=== PATIENT | female | born 1970 | race Two or more races ===

== ENCOUNTER 2024-11-24 18:33 | Emergency (ER) | payer MEDICAID ==
[~2024-11-24] VITALS: Ht 149.9 cm; Wt 76.2 kg
--- NOTE | 2024-11-24 19:31 | Physician Documentation ---
History of Present Illness Chief Complaint: Abdominal Pain Stated Complaint: ABDOMINAL PAIN Source: patient Mode of Arrival: POV Exam Limitations: no limitations HPI Patient with no significant medical history in with mild generalized cramping over the past week. She has also had a lot of diarrhea. No nausea or vomiting. No fever or rash. No known sick contacts. No recent travel, eating out or antibiotic use. She states her last diarrhea was early this morning so she feels like it is slowing down today. No upper respiratory symptoms. Medication Reconciliation Allergies: Coded Allergies: No Known Allergies (Unverified , 11/24/24) Past Medical History Past Medical History: No Pertinent History Review of Systems All Other Systems at this time: Reviewed and Negative Physical Exam Vital Signs: Temperature: 97.6, Source: Temporal, Heart Rate: 95, Respiratory Rate: 15, BP: 133/99, Pulse Oximetry: 99, Weight: 76.200 Physical Exam General: Alert and oriented x4, well-appearing, well-nourished, no acute distress HEENT: Normocephalic, atraumatic, no visible or palpable masses or depression, extraocular movements intact, PERRLA, no scleral icterus, neck is supple and nontender, mucous membranes moist Heart: Regular rate and rhythm, no murmurs, rubs or gallops Lungs: Clear to auscultation bilaterally, normal work of breathing Abdomen: Soft, nontender, no palpable masses, normal bowel sounds Back: Spine is without deformity or tenderness, no CVA tenderness Extremities: Full range of motion, no acute deformity, peripheral pulses intact, no cyanosis or edema Musculoskeletal: Normal gait, normal tone Neurologic: Cranial nerves 2-12 are intact, reflexes normal Psychiatric: Alert and oriented x4, judgment and insight normal, normal mood and affect Skin: Good turgor, no rashes Progress Results/Orders Results/Orders Vital Signs 11/24/24 18:49 Temp 97.6 Pulse 95 Resp 15 B/P (MAP) 133/99 Pulse Ox 99 Medical Decision Making Additional Comments Differential includes but isn't limited to: Gastroenteritis, colitis, dehydration, electrolyte derangement, viral infection Departure Disposition: HOME / SELF CARE / HOMELESS Impression: Primary Impression: Abdominal pain Qualified Codes: R10.84 - Generalized abdominal pain Additional Impression: Diarrhea Qualified Codes: R19.7 - Diarrhea, unspecified Additional Impression Text Patient in with diarrhea and mild cramping for the past week though it has improved today. Labs are unremarkable and CT is also negative. She does have fatty liver and mild hepatosplenomegaly. Discussed this with the patient. Discharging home in good condition. Did get fluids in the ED and feels better. She is to follow up with her doctor if not improving or return here if new or worsening symptoms prior to that follow-up. Condition: Stable Discharge Instructions: Diarrhea, Adult, [id number] Additional Instructions: Follow-up with your doctor if not improving over the next week or return if new or worsening symptoms. Referrals: NO PRIMARY CARE PROVIDER (PCP) Education Educated: Patient Educated regarding: diagnosis, treatment, prognosis, need for follow up Additional Comment Medical Screen Exam History: This is a 53-year-old female who presents with six days of abdominal pain with onset of vomiting and diarrhea today, patient reports no fever reports chills. Exam: VITALS: Reviewed and as above. GENERAL: Alert, nontoxic appearing, no apparent distress. RESPIRATORY: No increased work of breathing, no respiratory distress, speaking in full clear sentences MSE performed in triage and patient returned to ED lobby by nursing staff The note accurately reflects work and decisions made by me.SIMA Aceves 11/24/24 19:31 Signature Scribe Signature: No scribe Attestation: No [email or web address] Weeks Nov 24, 2024 19:31 TORRES NUNEZ MD Nov 25, 2024 01:43
[2024-11-24 21:26] LABS: BILIRUBIN,URINE NEGATIVE (Neg); CLARITY,URINE CLEAR (Clear); COLOR,URINE YELLOW (Yellow); GLUCOSE, URINE NEGATIVE (Neg); KETONES,URINE NEGATIVE (Neg); LEUKOCYTE ESTERASE ,URINE TRACE (Neg); NITRITES, URINE NEGATIVE (Neg); OCCULT BLOOD,URINE NEGATIVE (Neg); PH,URINE 7.5 (4.8-8.0); PROTEIN,URINE NEGATIVE (Neg); URINE HCG NEGATIVE (NEG); UROBILINOGEN,URINE 0.2 E.U/dL (0.2-1.0)
[2024-11-24 21:27] LABS: UA COLLECTION TYPE CLN CATCH MIDSTREAM
[2024-11-24 21:34] LABS: MUCUS STRANDS MODERATE /LPF (Neg); SQUAMOUS EPITHELIAL CELL,UR MODERATE /LPF (FEW)
[2024-11-24 21:35] LABS: BACTERIA,URINE FEW /HPF (Neg); RBC,URINE 0-2 /HPF (0-2)
[2024-11-24 21:38] LABS: BASOPHILS # (AUTO) 0.1 X10'3 (0-0.2); BASOPHILS % (AUTO) 0.5 % (0-1); EOSINOPHILS # (AUTO) 0.1 X10'3 (0-0.9); HEMOGLOBIN 13.5 g/dl (12.0-16.0); LYMPHOCYTES # (AUTO) 3.6 X10'3 (1.1-4.8); LYMPHOCYTES % (AUTO) 26.9 % (21-51); MEAN CORPUSCULAR HEMOGLOBIN 31.3 PG (27.0-31.0); MEAN CORPUSCULAR HGB CONC 34.7 g/dL (33.0-36.5); MEAN CORPUSCULAR VOLUME 90.1 FL (78-98); MEAN PLATELET VOLUME 9.1 FL (7.4-10.4); MONOCYTES # (AUTO) 0.9 X10'3 (0-0.9); MONOCYTES % (AUTO) 6.9 % (2-12); NEUTROPHILS # (AUTO) 8.7 X10'3 (1.8-7.7); NEUTROPHILS % (AUTO) 64.7 % (42-75); PLATELET COUNT 201 X10'3 (140-440); RED BLOOD COUNT 4.33 X10'6 (4.20-5.60); RED CELL DISTRIBUTION WIDTH 13.2 % (11.5-14.5); WHITE BLOOD COUNT 13.5 X10'3 (4.5-11.0)
[2024-11-24 21:59] LABS: ALANINE AMINOTRANSFERASE 53 U/L (12-78); ALBUMIN 3.3 G/DL (3.4-5.0); ALKALINE PHOSPHATASE 154 IU/L (46-116); ANION GAP 8 (8-16); ASPARTATE AMINO TRANSFERASE 18 U/L (10-37); BILIRUBIN,TOTAL 0.4 MG/DL (0.1-1.0); BLOOD UREA NITROGEN 15 MG/DL (7-18); BUN/CREATININE RATIO 27.8 (10.0-20.0); CALCIUM 8.9 MG/DL (8.5-10.1); CHLORIDE 106 MMOL/L (99-107); CREATININE 0.54 MG/DL (0.40-0.90); GLUCOSE 212 MG/DL (70-104); LIPASE 82 U/L (16-77); POTASSIUM 3.5 MMOL/L (3.5-5.1); SODIUM 143 MMOL/L (135-145); TOTAL CARBON DIOXIDE 28.8 MMOL/L (24-32); TOTAL PROTEIN 6.5 G/DL (6.4-8.2); eCRCL 83 ML/MIN; eGFR > 90 ML/MIN
[2024-11-24] MEDS ORDERED: iohexol 300mg/ml 100ml inj. ONE (22:35)
[2024-11-24] MEDS: normal saline 1000ml 1,000 ML IV ONE (22:45)
--- NOTE | 2024-11-25 01:05 | RADIOLOGY REPORT ---
CLINICAL HISTORY: generalized abdo pain and diarrhea x 1 week TECHNIQUE: CT of the abdomen and pelvis was performed with intravenous contrast. This exam was perfor med according to our departmental dose optimization program. Up-to-date CT equipment and radiation do se reduction techniques are utilized as appropriate. CTDIVol: 33.83+ 0.14 mGy DLP: 1785.37 mGy-cm WID: COMPARISON: None FINDINGS: Lower Thorax: Unremarkable. Liver and Biliary system: Mild hepatomegaly measuring 19 cm craniocaudal. Mild hepatic steatosis. No discrete hepatic lesion. Major portal veins are patent. Prior cholecystectomy. No biliary ductal di latation. Spleen: Mild splenomegaly. Adrenal Glands and Kidneys: Unremarkable. Pancreas and Retroperitoneum: Unremarkable. Aorta and Major Vessels: Aortoiliac vessels are patent and normal caliber with mild calcified atheros clerotic plaque. Bowel, Mesentery and Peritoneal space: Normal caliber small and large bowel. Normal appendix. No free air or fluid collection. Pelvis: No pelvic lymphadenopathy. Prior hysterectomy. Urinary bladder is unremarkable. Abdominal wall and Osseous Structures: Small fat containing umbilical hernia. Multilevel lower thorac ic and lumbar spondylosis. No destructive osseous lesion. IMPRESSION: 1. No bowel obstruction, fluid collection, or free air. Normal appendix. 2. Mild hepatosplenomegaly with mild hepatic steatosis.
[2024-11-25 01:55] VITALS: BP 136/80; PULSE 80; RESP 16; TEMP 98.1; O2SAT 99
== END 2024-11-25 02:10 | disposition home or self-care (01) ==
LOC: ER 18:35
DX: R10.84 Generalized abdominal pain (principal); R19.7 Diarrhea, unspecified
CPT/HCPCS: 36415; 74177; 80053; 81001; 81025; 83690; 85025; 87088; 96360; 99285; J7030; Q9967

== ENCOUNTER 2025-02-02 13:48 | Emergency (ER) | payer MEDICAID ==
[~2025-02-02] VITALS: Ht 149.9 cm; Wt 87.6 kg
[2025-02-02 13:59] VITALS: BP 141/78; PULSE 99; RESP 16; TEMP 97.7; O2SAT 98
--- NOTE | 2025-02-02 14:04 | Physician Documentation ---
History of Present Illness ~ Chief Complaint: Flu Symptoms Stated Complaint: ALL OVER BODY PAIN Time Seen by MD: 14:54 HPI Patient is a 54-year-old female that presents to the emergency department for evaluation of flu-like symptoms. Patient reports pain throughout her body nausea x5 days. Patient denies shortness of breath or chest pain. Patient denies any known sick contacts. No other complaints at this time. Medication Reconciliation Allergies: Coded Allergies: No Known Allergies (Unverified , 11/24/24) Past Medical History Past Medical History: No Pertinent History Review of Systems ROS As stated above in the HPI, otherwise all systems are reviewed and negative. Physical Exam Vital Signs: Temperature: 97.7, Source: Temporal, Heart Rate: 99, Respiratory Rate: 16, BP: 141/78, Pulse Oximetry: 98, Weight: 87.600 Physical Exam VITALS: Reviewed and as above. GENERAL: Alert, no apparent distress. HEENT: Normocephalic, atraumatic, PERRL, EOMI, dry mucosa, no erythema RESPIRATORY: Lungs clear, normal breath sounds, no respiratory distress. CHEST: No accessory muscle use, no retractions CV: Regular rate, rhythm, no edema, no murmur, No: JVD GI: Soft, non-tender, bowels sounds present, no rebound, guarding, or rigidity BACK: No CVA tenderness, or swelling MUSCULOSKELETAL No deformities, no edema, patient reports all over body aches an d achy joints. SKIN: Warm and dry, no rash NEURO: Oriented x4, No motor or sensory deficit PSYCH: Normal mood and affect, no agitation Progress Results/Orders Results/Orders Orders - SARAHI SANFORD HEAD ORTHOPEDIC TEAM PHYSICIAN Chest,Single View (02/02/25 16:20) Cult Urine + [address] (02/02/25 16:37) Completed Orders - SARAHI SANFORD HEAD ORTHOPEDIC TEAM PHYSICIAN Cbc/Diff (02/02/25 14:18) CMP (02/02/25 14:18) Chest,Single View (02/02/25 16:20) PBNP (02/02/25 04:37) Ua W/Microscopic, Cult If Ind (02/02/25 15:48) Vital Signs 02/02/25 13:59 Temp 97.7 Pulse 99 Resp 16 B/P (MAP) 141/78 Pulse Ox 98 Laboratory Tests Test 02/02/25 04:37 02/02/25 14:37 02/02/25 15:48 02/02/25 15:53 Sodium Level 141 Potassium Level 3.9 Chloride Level 107 Carbon Dioxide Level 27.6 Anion Gap 6 L Blood Urea Nitrogen 16 Creatinine 0.39 L Estimated GFR/1.73 m2 > 90 BUN/Creatinine Ratio 41.0 H Glucose Level 134 H Calcium Level 9.0 Total Bilirubin 0.8 Aspartate Amino Transf (AST/SGOT) 36 Alanine Aminotransferase (ALT/SGPT) 45 Alkaline Phosphatase 135 H Pro-B-Type Natriuretic Peptide 37 Total Protein 7.0 Albumin 3.4 Globulin 3.6 Albumin/Globulin Ratio 0.9 L Chemistry Comments White Blood Count 7.8 Red Blood Count 4.41 Hemoglobin 13.6 Hematocrit 39.5 Mean Corpuscular Volume 89.6 Mean Corpuscular Hemoglobin 30.8 Mean Corpuscular Hemoglobin Concent 34.4 Red Cell Distribution Width 12.8 Platelet Count 168 Mean Platelet Volume 10.3 Neutrophils (%) (Auto) 57.2 Lymphocytes (%) (Auto) 34.0 Monocytes (%) (Auto) 5.2 Eosinophils (%) (Auto) 3.0 Basophils (%) (Auto) 0.6 Neutrophils # (Auto) 4.4 Lymphocytes # (Auto) 2.6 Monocytes # (Auto) 0.4 Eosinophils # (Auto) 0.2 Basophils # (Auto) 0.0 CBC Comment Urine Specimen Description Cln catch midstream Urine Color Yellow Urine Clarity Cloudy Urine pH 5.0 Urine Specific [place] 1.010 Urine Protein 30 H Urine Glucose (UA) Negative Urine Ketones Negative Urine Occult Blood Small Urine Nitrite Negative Urine Bilirubin Negative Urine Urobilinogen 0.2 Urine Leukocyte Esterase Moderate H Urine RBC 3-10 Urine WBC Tntc H Urine Squamous Epithelial Cells Moderate Urine Transitional Epithelial Cells Few Urine Renal Cells Moderate Urine Bacteria 4+ Urine Mucus Few Urine Culture Indicated Indicated Volume Urine Centrifuged 10 ml Urine Comment SARS-CoV-2 Antigen (Rapid) Negative Microbiology Date/Time Source Procedure Growth Status 02/02/25 16:37 Urine Clean Catch Midstream Urine Culture - Preliminary Culture received. Resulted Medical Decision Making Findings This patient presents with symptoms consistent with acute uncomplicated cystitis. Not septic. Well appearing. Suspect acute pyelonephritis given fever and systemic symptoms. This patient presents with symptoms consistent with acute uncomplicated cystitis. Not septic. Well appearing. Low suspicion for acute pyelonephritis given diagnostics Low suspicion for kidney stone or infected stone. Low suspicion for ovarian torsion, PID, or appendicitis. An tibiotics prescribed. Patient will follow up with primary care provider. Patient will return to the emergency department with any worsening or recurrent symptoms or any additional concerning symptoms that we discussed here today i.e. prolonged fevers increased nausea vomiting abdominal pain blood in her urine or any other concerning symptoms. Tylenol ibuprofen as needed for discomfort. Please take your antibiotic as prescribed. Please follow up with her primary care provider. Please return to the emergency department if you have any worsening or recurrent symptoms or any additional concerning symptoms present. Low suspicion for kidney stone or infected stone. Low suspicion for ovarian torsion, PID, or appendicitis. Antibiotics prescribed. Patient will follow up with primary care provider. Patient will return to the emergency department with any worsening or recurrent symptoms or any additional concerning symptoms that we discussed here today i.e. prolonged fevers increased nausea vomiting abdominal pain blood in her urine or any other concerning symptoms. Tylenol ibuprofen as needed for discomfort. Please take your antibiotic as prescribed. Please follow up with her primary care provider. Please return to the emergency department if you have any worsening or recurrent symptoms or any additional concerning symptoms present. Differential Dx:Considerations: Include: CVA, Dehydration, Drug toxicity, Electrolyte imbalance, Influenza, Meningitis, Mycardial infarction, Pneumonia, Pneumonitis, Pulmonary embolus, Pyelonephritis, Respiratory failure, Sepsis, UTI, Viral Syndrome, Other Departure Disposition: HOME / SELF CARE / HOMELESS Impression: Primary Impression: Abdominal pain Additional Impressions: Urinary tract infection Fever Pyelonephritis Discharge Instructions: Pyelonephritis, Adult, Urinary Tract Infection, Adult Additional Instructions: This patient presents with symptoms consistent with acute uncomplicated cystitis. Not septic. Well appearing. Suspect pyelonephritis given systemic symptoms. Low suspicion for kidney stone or infected stone. Low suspicion for ovarian torsion, PID, or appendicitis. Antibiotics prescribed. Patient will follow up with primary care provider. Patient will return to the emergency department with any worsening or recurrent symptoms or any additional concerning symptoms that we discussed here today i.e. prolonged fevers increased nausea vomiting abdominal pain blood in her urine or any other concerning symptoms. Tylenol ibuprofen as needed for discomfort. Please take your antibiotic as prescribed. Please follow up with her primary care provider. Please return to the emergency department if you have any worsening or recurrent symptoms or any additional concerning symptoms present. Referrals: NO PRIMARY CARE PROVIDER (PCP) Prescriptions Cephalexin*Monohydrate* (Keflex*) 500 Mg Capsule 1 CAP PO QID for 7 Days, #28 CAP Prov: SARAHI SANFORD 02/02/25 Education Educated: Patient Educated regarding: diagnosis, treatment, need for follow up Signature Scribe Signature: A Attestation: Scribed for Sarahi Sanford by SIMA Og . 02/02/25 17:59 SARAHI SANFORD Feb 02, 2025 14:04
[2025-02-02 14:46] LABS: MEAN PLATELET VOLUME 10.3 FL (7.4-10.4); RED CELL DISTRIBUTION WIDTH 12.8 % (11.5-14.5)
[2025-02-02 15:01] LABS: CREATININE 0.39 MG/DL (0.40-0.90); TOTAL CARBON DIOXIDE 27.6 MMOL/L (24-32); eCRCL 114 ML/MIN; eGFR > 90 ML/MIN
[2025-02-02 16:31] LABS: UA COLLECTION TYPE CLN CATCH MIDSTREAM
[2025-02-02 16:33] LABS: NITRITES, URINE NEGATIVE (Neg); OCCULT BLOOD,URINE SMALL (Neg)
[2025-02-02 16:34] LABS: LEUKOCYTE ESTERASE ,URINE MODERATE (Neg)
[2025-02-02 16:36] LABS: MUCUS STRANDS FEW /LPF (Neg); RENAL CELLS, URINE MODERATE /HPF; SQUAMOUS EPITHELIAL CELL,UR MODERATE /LPF (FEW)
--- NOTE | 2025-02-02 16:42 | RADIOLOGY REPORT ---
CHEST RADIOGRAPH Indication: Edema bilateral lower extremities Technique: Single frontal view of the chest was obtained COMPARISON: None FINDINGS: Lines and Tubes: None Lungs: Congestion Pleura: No effusion. No pneumothorax. Cardiomediastinal contours: Unremarkable Bones: Unremarkable IMPRESSION: Increased interstital prominence. This may represent pulmonary vascular congestion and/or viral pneum onia. Clinical correlation advised.
[2025-02-02 16:53] LABS: PRO BRAIN NATRIURETIC PEPTIDE 37 PG/ML (0-125)
[2025-02-02] MEDS ORDERED: CEPH-585 PO (17:58)
[2025-02-02] MEDS ORDERED: CefTRIAXone 1000mg IM Kit (w/lidocaine diluent) IM ONE (18:00)
== END 2025-02-02 18:10 | disposition home or self-care (01) ==
LOC: ER 13:48
DX: N39.0 Urinary tract infection, site not specified (principal); N12 Tubulo-interstitial nephritis, not specified as acute or chronic; R50.9 Fever, unspecified; Z20.822 Contact with and (suspected) exposure to COVID-19
CPT/HCPCS: 36415; 71045; 80053; 81001; 83880; 85025; 87088; 87811; 99284

== ENCOUNTER 2025-04-13 06:58 | Emergency (ER) | payer MEDICAID ==
[~2025-04-13] VITALS: Ht 149.9 cm; Wt 86.8 kg
[2025-04-13 07:01] VITALS: TEMP 97.3
--- NOTE | 2025-04-13 08:05 | Physician Documentation ---
History of Present Illness ~ Chief Complaint: Leg Pain Stated Complaint: SEVERE BACK PAIN Time Seen by MD: 08:04 HPI 54-year-old female presenting with right-sided back pain and leg pain History is obtained using a optician apprentice dispensing. The patient tells me that she has been having some intermittent pain in her lower back and legs for some time. Her provider gave her naproxen which did not help. She tells me that she developed severe symptoms last night. She states that initially she had pain in her whole-body including in her shoulders, legs, back. Now she has severe pain in her right lower back. No radiation of the pain although sometimes she says she does have pain going down her leg. She describes the pain as burning. No radiation to the abdomen. She reports feeli ng slightly nauseous, but no vomiting. No diarrhea. No dysuria or hematuria. No injuries or activity changes. Nothing else makes the pain better. Tetanus witin 5 years: No Medication Reconciliation Allergies: Coded Allergies: No Known Allergies (Unverified , 04/13/25) Scheduled Cyclobenzaprine* (Cyclobenzaprine*), 1 TAB PO Q12H Past Medical History Past Medical History: No Pertinent History Review of Systems Constitutional: Denies: fever Musculoskeletal: Reports: back pain, muscle pain Physical Exam Vital Signs: Temperature: 97.3, Heart Rate: 99, Respiratory Rate: 20, BP: 144/108, Pulse Oximetry: 98, Weight: 86.800 Oxygen Flow Rate: 0 Physical Exam General: This is an anxious appearing middle-aged female, tearful, standing and holding the right side of her back HEENT: Atraumatic, oropharynx is moist Heart: Mild tachycardic, appears regular Lungs: Clear breath sounds bilateral, normal work of breathing, normal oxygen saturation on room air Abdomen: Soft, nondistended, nontender all quadrants Back: The patient does have some mild reproducible tenderness on palpation over the right lower back. No overlying rash. No focal midline tenderness. Extremities: Warm and well-perfused Neuro: Alert and oriented. The patient is able to stand and walk. No lower extremity weakness. No significant lower extremity numbness Psychiatric: Anxious and tearful, appears in mild distress Progress Results/Orders Results/Orders Orders - WESLEY AMBRIZ MD Ct Abdomen Pelvis (04/13/25 10:29) Completed Orders - WESLEY AMBRIZ MD Cbc/Diff (04/13/25 08:18) CMP (04/13/25 08:18) Ketorolac Trometh 15mg/Ml Vial (Toradol (04/13/25 08:20) Lidocaine 5% Patch (Lidoderm 5% Patch) (04/13/25 08:20) Diazepam Inj (Valium Inj) (04/13/25 08:20) Ct Abdomen Pelvis (04/13/25 10:29) Ua W/Microscopic, Cult If Ind (04/13/25 10:55) Medications Received in ER Medications (Trade) Dose Ordered Sig/Carey Route PRN Reason Start Time Stop Time Status Last Admin Dose Admin (Toradol injection) 15 mg ONCE ONCE IV 04/13/25 08:20 04/13/25 08:21 DC 04/13/25 08:36 15 MG (Lidoderm 5% Patch) 1 patch ONCE ONCE TP 04/13/25 08:20 04/13/25 08:21 DC 04/13/25 08:35 1 PATCH (Valium inj) 2.5 mg ONCE ONCE IV 04/13/25 08:20 04/13/25 08:21 DC 04/13/25 08:37 2.5 MG Vital Signs 04/13/25 04/13/25 04/13/25 04/13/25 07:01 08:36 08:37 08:41 Temp 97.3 Pulse 99 86 Resp 20 15 15 15 B/P (MAP) 144/108 120/79 (93) Pulse Ox 98 95 O2 Flow Rate 0 04/13/25 10:58 Pulse 79 Resp 15 B/P (MAP) 128/66 (86) Pulse Ox 98 Laboratory Tests Test 04/13/25 08:38 04/13/25 10:55 White Blood Count 6.8 Red Blood Count 4.37 Hemoglobin 13.3 Hematocrit 38.0 Mean Corpuscular Volume 86.8 Mean Corpuscular Hemoglobin 30.4 Mean Corpuscular Hemoglobin Concent 35.1 Red Cell Distribution Width 12.9 Platelet Count 145 Mean Platelet Volume 11.2 H Neutrophils (%) (Auto) 61.7 Lymphocytes (%) (Auto) 29.5 Monocytes (%) (Auto) 5.2 Eosinophils (%) (Auto) 2.5 Basophils (%) (Auto) 1.1 H Neutrophils # (Auto) 4.2 Lymphocytes # (Auto) 2.0 Monocytes # (Auto) 0.4 Eosinophils # (Auto) 0.2 Basophils # (Auto) 0.1 CBC Comment Platelet Estimate Normal Large Platelets Few Red Blood Cell Morphology Perf Basophilic Stippling Sodium Level 137 Potassium Level 3.5 Chloride Level 102 Carbon Dioxide Level 31.7 Anion Gap 3 L Blood Urea Nitrogen 11 Creatinine 0.44 Estimated GFR/1.73 m2 > 90 BUN/Creatinine Ratio 25.0 H Glucose Level 322 H Calcium Level 8.6 Total Bilirubin 0.7 Aspartate Amino Transf (AST/SGOT) 38 H Alanine Aminotransferase (ALT/SGPT) 47 Alkaline Phosphatase 134 H Total Protein 7.7 Albumin 3.5 Globulin 4.2 Albumin/Globulin Ratio 0.8 L Chemistry Comments Urine Specimen Description Urinal Urine Color Yellow Urine Clarity Cloudy Urine pH 6.0 Urine Specific [place] 1.020 Urine Protein Negative Urine Glucose (UA) >=1000 H Urine Ketones Negative Urine Occult Blood Trace-intact Urine Nitrite Negative Urine Bilirubin Negative Urine Urobilinogen 0.2 Urine Leukocyte Esterase Small H Urine RBC 0-2 Urine WBC Tntc H Urine Squamous Epithelial Cells Many Urine Bacteria 3+ Urine Mucus None seen Urine Culture Indicated Rejected for culture Volume Urine Centrifuged 10 ml Urine Comment Medical Decision Making Additional information obtaine: N/A Findings na General Diff Dx:Considerations: Include: Fracture, Sprain Knee Diff Dx:Considerations: Unlikely: Abrasion Ankle Diff Dx:Considerations: Unlikely: Abrasion Foot Diff Dx:Considerations: Unlikely: Abrasion Toe Diff Dx:Considerations: Unlikely: Abrasion Additional Comment The patient presents with right-sided back pain. Her history is challenging, it is difficult to tell if this is acute or acute on chronic. It seems that she does have some chronic back pain with leg involvement. On my exam she does have some reproducible tenderness on palpation of the muscles of the back. No abdominal tenderness. Laboratory testing is unremarkable. CT scan shows no kidney stone or spinal fracture. After symptomatic treatment she did feel much improved. Overall, I suspect that part of her pain complex could be related to sciatica or other spinal process. I doubt cauda equina or epidural abscess. She also likely has some component of muscle spasm. I think she would benefit from an outpatient MRI. She will be discharged with ongoing anti- inflammatories, and muscle relaxant, and instructions to contact her primary clinic to arrange an outpatient MRI. I did discuss the possibility of steroids, but this seems dangerous given that she has a uncontrolled diabetes. Return precautions given. Departure Time of Disposition: 12:30 Disposition: HOME / SELF CARE / HOMELESS Impression: Primary Impression: Sciatica Additional Impression: Low back pain Condition: Improved Discharge Instructions: Sciatica Referrals: NO PRIMARY CARE PROVIDER (PCP) Prescriptions Cyclobenzaprine* (Cyclobenzaprine*) 10 Mg Tablet 1 TAB PO Q12H for muscle spasms for 10 Days, #20 TAB 0 Refills Prov: WESLEY AMBRIZ MD 04/13/25 Education Educated: Patient, Family Educated regarding: diagnosis, treatment, need for follow up Signature Scribe Signature: na Attestation: WESLEY Teresa MD Apr 13, 2025 08:05
[2025-04-13] MEDS: ketorolac trometh 15mg/ml vial 15 MG/ML ML IV ONE (08:36)
[2025-04-13] MEDS: diazepam inj 5 MG/ML inj. IV ONE (08:37)
[2025-04-13 09:03] LABS: MEAN PLATELET VOLUME 11.2 FL (7.4-10.4); RED CELL DISTRIBUTION WIDTH 12.9 % (11.5-14.5)
[2025-04-13 09:08] LABS: CREATININE 0.44 MG/DL (0.40-0.90); TOTAL CARBON DIOXIDE 31.7 MMOL/L (24-32); eCRCL 101 ML/MIN; eGFR > 90 ML/MIN
[2025-04-13 09:27] LABS: LARGE PLATELETS FEW; PLATELET ESTIMATE NORMAL
--- NOTE | 2025-04-13 10:46 | RADIOLOGY REPORT ---
CT CT ABDOMEN PELVIS INDICATION: right flank pain, right low back pain, possible sciatica EXAM DATE: 04/13/2025 10:20 AM COMPARISON: CT CT ABDOMEN PELVIS W/ IV CONTRAST on DOS: 11/24/24 RADIATION DOSE: CTDIvol: 34 mGy, DLP: 1730 mGy*cm PROCEDURE: Helical CT images were obtained of the abdomen and pelvis without IV contrast Sagittal and coronal reconstructions are provided. ORAL CONTRAST: None. ADDITIONAL IMAGES / REFORMATS: None All CT scans at this medical facility are performed using dose modulation techniques as appropriate to a performed exam including the following: Automated exposure control was utilized; adjustment of the MA and/or KV according to patient size; and use of iterative reconstruction technique. FINDINGS: LUNG BASE: Normal. LIVER: Normal. GALLBLADDER AND BILIARY TREE: Absent gallbladder. No intra- or extrahepatic biliary ductal dilation. PANCREAS: Normal. SPLEEN: Normal. BOWEL: Normal appendix. ADRENALS: Normal. KIDNEYS AND URETER: Normal. BLADDER: Normal. REPRODUCTIVE ORGANS: Absent. LYMPH NODES:No lymphadenopathy. PERITONEUM: No ascites or free air. No other fluid collection. VESSELS: Scattered atherosclerotic calcifications are noted. RETROPERITONEUM: Normal. ABDOMINAL WALL: Fat containing umbilical hernia. BONES: Scattered osseous degenerative changes are noted. IMPRESSION: No acute intraabdominal abnormality.
[2025-04-13 11:45] LABS: LEUKOCYTE ESTERASE ,URINE SMALL (Neg); NITRITES, URINE NEGATIVE (Neg); OCCULT BLOOD,URINE TRACE-INTACT (Neg)
[2025-04-13 11:52] LABS: UA COLLECTION TYPE URINAL
[2025-04-13 11:59] LABS: MUCUS STRANDS NONE SEEN /LPF (Neg); SQUAMOUS EPITHELIAL CELL,UR MANY /LPF (FEW)
[2025-04-13] MEDS ORDERED: CYCL-1 PO (12:32)
[2025-04-13 13:56] VITALS: BP 137/79; PULSE 90; RESP 16; O2SAT 97
== END 2025-04-13 12:53 | disposition home or self-care (01) ==
LOC: ER 06:59
DX: M54.31 Sciatica, right side (principal); Z79.899 Other long term (current) drug therapy
CPT/HCPCS: 36415; 74176; 80053; 81001; 85008; 85025; 96374; 96375; 99285; J1885; J3360

== ENCOUNTER 2025-04-19 12:27 | Outpatient (CLI) | payer MEDICAID ==
[~2025-04-19 12:27] MED LIST: CYCL-1 PO
--- NOTE | 2025-04-19 14:38 | RADIOLOGY REPORT ---
INDICATION: RIGHT SIDE BACK PAIN COMPARISON: CT CT ABDOMEN PELVIS on DOS: 04/13/25, CT CT ABDOMEN PELVIS W/ IV CONTRAST on DOS: 11/24/24 TECHNIQUE: 4 views of the lumbar spine were obtained. FINDINGS: The lumbar vertebral alignment is normal. Multilevel degenerative changes most severe at L3-L4 through L4-L5 causing moderate to severe neural foraminal and spinal canal stenosis No acute fracture, vertebral compression deformity or aggressive osseous lesions. The paravertebral soft tissues are grossly unremarkable. IMPRESSION: No acute fracture or subluxation.
== END 2025-04-19 22:59 | disposition home or self-care (01) ==
LOC: RAD 12:27
PROVIDERS: ATTEND Nurse Practitioner Family
DX: M54.50 Low back pain, unspecified (principal); M54.2 Cervicalgia; M17.12 Unilateral primary osteoarthritis, left knee; M48.02 Spinal stenosis, cervical region; M47.816 Spondylosis without myelopathy or radiculopathy, lumbar region
CPT/HCPCS: 72110

== ENCOUNTER 2025-04-21 10:02 | Emergency (ER) | payer MEDICAID ==
[~2025-04-21] VITALS: Ht 149.9 cm; Wt 85.0 kg
[2025-04-21 10:16] VITALS: TEMP 98.7
[2025-04-21] MEDS: ketorolac trometh 15mg/ml vial 15 MG/ML ML IM ONE (11:25)
--- NOTE | 2025-04-21 11:32 | Physician Documentation ---
History of Present Illness ~ Chief Complaint: Back Pain Stated Complaint: BACK PAIN Time Seen by MD: 10:24 OK to notify your PCP?: Yes Primary Medical Doctor: none Source: patient Mode of Arrival: POV Exam Limitations: no limitations HPI This is a 54-year-old female who comes in complaining of continued pain of the low back mostly in the right side. The patient was seen here body days ago with the pain began. She was seen by one of the ER attending and had an extensive workup. This showed elevated glucose but no other concerning findings in the blood work or the CT scan abdomen and pelvis. The patient is discharged home with a diagnosis of the low back pain. The patient returns stating that is the pain persist. She denies saddle paresthesias, urinary retention loss of bowel control. The pain is exacerbated by movement of the trunk and prolonged sitting. At times she gets radiation down the right leg. Medication Reconciliation Allergies: Coded Allergies: No Known Allergies (Unverified , 04/21/25) Scheduled Cyclobenzaprine* (Cyclobenzaprine*), 1 TAB PO Q12H Past Medical History Past Medical History: No Pertinent History Physical Exam Physical Exam Vital Signs: Temperature: 98.7, Source: Oral, Heart Rate: 103, Respiratory Rate: 22, BP: 135/88, Pulse Oximetry: 100, Weight: 85.000 Oxygen Flow Rate: 0 Pulse Oximetry Reflects: adequate oxygenation General Appearance: alert, WD/WN, moderate distress (The patient is guarding of the right low back and tearful.) Back Positive tenderness to palpation of the right lower paraspinal muscles of the lumbar spine. No midline step-off deformity or point tenderness. No CVA tenderness to blunt percussion bilaterally. Decreased range of motion of the waist with flexion-extension rotation secondary to subjective pain. Sensory/Motor: sensation grossly intact, 5/5 strength all extrem. Progress Results/Orders Results/Orders Completed Orders - LINDA SLATER Ketorolac Trometh 15mg/Ml Vial (Toradol (04/21/25 11:25) Hydrocodone/Apap 10/325 ([place] 10/325mg (04/21/25 11:25) Ketorolac Trometh 30mg/Ml Vial (Toradol (04/21/25 12:35) Medications Received in ER Medications (Trade) Dose Ordered Sig/Carey Route PRN Reason Start Time Stop Time Status Last Admin Dose Admin ([place] 10/325mg tab) 1 tab ONCE ONCE PO 04/21/25 11:25 04/21/25 11:27 DC 04/21/25 12:36 1 TAB (Toradol inj. 30mg/ml) 30 mg ONCE ONCE IM 04/21/25 12:35 04/21/25 12:36 DC 04/21/25 12:36 30 MG Vital Signs 04/21/25 04/21/25 04/21/25 10:16 12:36 12:36 Temp 98.7 Pulse 103 Resp 22 16 16 B/P (MAP) 135/88 Pulse Ox 100 O2 Flow Rate 0 Medical Decision Making Additional information obtaine: old records Findings I gave the patient injection of Toradol 30 mg IM and [place] [id number] mg p.o.. After which he states he feels much better. She is no longer tearful and much more calm and relaxed. States the medicine helped her pain significantly. The patient has a very extensive workup about a week ago so I did not repeat imaging or labs. I told the patient that has point she has a follow up with the primary care physician for an outpatient MRI of the lumbar spine and referral to a spine surgeon if deemed necessary. She has not no signs of cauda equina syndrome or focal neuro deficits. Differential Dx:Considerations: Other (Low back pain. Disc herniation lumbar spine. Lumbosacral radiculopathy.) Differential Diagnosis Low back pain. Acute on chronic low back pain. Disc herniation of the lumbar spine. Lumbosacral radiculopathy. Doubt intra-abdominal etiology. Departure Disposition: HOME / SELF CARE / HOMELESS Impression: Primary Impression: Low back pain Condition: Stable Discharge Instructions: Acute Back Pain, Adult Additional Instructions: I suggest that this point you follow up with the primary care physician and asked for an MRI of the lumbar spine and referral to a spine surgeon for more definitive care. As we discussed weight loss with the also be of benefit. You can take ibuprofen for lesser pain with the prescribed [place] for strong pain. Return to the ER for any worsening or concerning symptoms. Referrals: NO PRIMARY CARE PROVIDER (PCP) Prescriptions Ibuprofen (Ibu) 600 Mg Tablet 1 TAB PO Q6H, #30 TAB 0 Refills Prov: LINDA SLATER 04/21/25 Hydrocodone Bit/Acetaminophen (Hydrocodone-Apap 10-325 Tablet) 10mg/325mg Tablet 1 TABLET PO Q4H PRN for moderate or severe pain 4-10, #20 TAB Prov: LINDA SLATER 04/21/25 Signature Scribe Signature: No scribe Attestation: The note accurately reflects work and decisions made by me.Linda ABERNATHY 04/21/25 13:29 LINDA SLATER Apr 21, 2025 11:32
[2025-04-21] MEDS: HYDROcodone/acetaminophen 10/325mg tab PO ONE (12:36)
[2025-04-21] MEDS: ketorolac trometh 30MG/ML vial 30 MG/ML VIAL IM ONE (12:36)
[2025-04-21] MEDS ORDERED: HYDR-3973 PO (13:28)
[2025-04-21] MEDS ORDERED: IBUP-862 PO (13:28)
[2025-04-21 13:49] VITALS: BP 126/80; PULSE 85; RESP 15; O2SAT 98
== END 2025-04-21 13:50 | disposition home or self-care (01) ==
LOC: ER 10:03
DX: M54.50 Low back pain, unspecified (principal); R73.9 Hyperglycemia, unspecified
CPT/HCPCS: 96372; 99283; J1885

== ENCOUNTER 2025-06-03 09:07 | Emergency (ER) | payer MEDICAID ==
[~2025-06-03] VITALS: Ht 149.9 cm; Wt 83.8 kg
[~2025-06-03 09:07] MED LIST changes: +IBUP-862 PO
[2025-06-03 09:20] VITALS: TEMP 97.4
--- NOTE | 2025-06-03 09:27 | Physician Documentation ---
History of Present Illness ~ General Chief Complaint: Flank Pain Stated Complaint: BACK PAIN Time Seen by MD: 09:08 Primary Medical Doctor: none Source: patient, family Mode of Arrival: POV History of Present Illness Initial Comments Patient is a 54-year-old female presenting to the ED for evaluation of persisten t lower back pain for the past two months. Patient locates pain to be towards her right lower back that radiates to the front and across her abdomen. states that patient has been up all night and could not sleep due to the burning" pain. Patient has an appointment with her PCP to evaluate these symptoms but her appointment is not until next year. Patient denies a rash or having any previous injury to the area. She does not have any other questions, concerns or complaints at this time. Medication Reconciliation Allergies: Coded Allergies: No Known Allergies (Unverified , 06/03/25) Scheduled Cephalexin*Monohydrate* (Keflex*), 1 CAP PO Q8H Cyclobenzaprine* (Cyclobenzaprine*), 1 TAB PO Q12H Ibuprofen (Ibu), 1 TAB PO Q6H Past Medical History Past Medical History: No Pertinent History Smoking Status: Unknown if ever smoked Alcohol Use: None Drug Use: none Lives with: Family Lives In: Home Review of Systems ROS ROS: Constitutional: Negative for fever and chills. HENT: Negative for sore throat and rhinorrhea. Eyes:Negative for pain and redness. Respiratory: Negative for cough and shortness of breath. Cardiovascular: Negative for chest pain and palpitations. Gastrointestinal: Negative for nausea and vomiting. Genitourinary: Negative for dysuria and hematuria. Musculoskeletal: Right lower back pain, Negative for acute neck pain. Skin: Negative for rash and pruritus. Neurological: Negative for acute numbness or weakness. Physical Exam Physical Exam Vital Signs: Temperature: 97.4, Source: Temporal, Heart Rate: 99, Respiratory Rate: 22, BP: 152/106, Pulse Oximetry: 98, Weight: 83.800 Oxygen Flow Rate: 0 Physical Exam PHYSICAL EXAM: General Appearance: WDWN, No Distress, Cooperative, Awake Head: No Trauma. Scalp Normal Eyes: Lids normal, conjunctiva normal ENT: Mucous membranes normal, facial bones normal, lips normal, oropharynx normal Neck: Normal active FROM, non-tender with ROM, no meningeal signs, No JVD Back: Normal active FROM, non-tender with ROM, no CVAT Resp: Normal resp rate, normal flow, lungs clear to auscultation, no resp distress, no retractions Heart: Reg rhythm, no murmur Abd: Soft, non-tender, no guarding, no rebound, no mass Musc/Skel: Patient has right paralumbar TTP, No chest wall tenderness, Normal ROM UE's and LE's, No acute bone/joint abnormality or tenderness, normal L5-S1 strength, no saddle anesthesia Skin: Normal color, no petechia/purpura, no rash Extremities: No edema Neuro: Motor 5/5 & Symmetric Bilat, CN 2-12 grossly intact and symmetric bilat. Oriented x4, speech normal. Psych: Mood & Affect: Normal, Depressed: 0, Awareness & insight normal Progress Results/Orders Results/Orders Orders - SESAR ALMARAZ MD Ct Lumbar Spine (06/03/25 12:48) Completed Orders - SESAR ALMARAZ MD Ketorolac Trometh 15mg/Ml Vial (Toradol (06/03/25 09:55) Morphine 4mg/Ml Inj. (Morphine Inj.) (06/03/25 09:55) Ondansetron Disint. Tablet (Zofran Odt T (06/03/25 09:55) Ketorolac Trometh 15mg/Ml Vial (Toradol (06/03/25 10:20) Morphine 4mg/Ml Inj. (Morphine Inj.) (06/03/25 10:20) Ua W/Microscopic, Cult If Ind (06/03/25 09:50) Ct Lumbar Spine (06/03/25 12:48) Cephalexin Capsule (Keflex Capsule) (06/03/25 14:15) Medications Received in ER Medications (Trade) Dose Ordered Sig/Carey Route PRN Reason Start Time Stop Time Status Last Admin Dose Admin (Keflex capsule) 500 mg ONCE ONCE PO 06/03/25 14:15 06/03/25 14:16 DC 06/03/25 14:27 500 MG Vital Signs 06/03/25 06/03/25 06/03/25 06/03/25 09:20 09:49 10:19 10:24 Temp 97.4 Pulse 99 88 Resp 22 16 16 16 B/P (MAP) 152/106 161/87 (111) Pulse Ox 98 99 O2 Flow Rate 0 0 06/03/25 06/03/25 06/03/25 06/03/25 10:25 11:33 12:12 13:30 Pulse 74 78 78 Resp 16 16 16 16 B/P (MAP) 151/83 (105) 166/104 (124) 118/65 (82) Pulse Ox 95 97 98 O2 Flow Rate 0 0 06/03/25 06/03/25 14:13 14:30 Pulse 91 82 Resp 16 16 B/P (MAP) 140/70 (93) 146/82 Pulse Ox 100 95 O2 Flow Rate 0 Laboratory Tests Test 06/03/25 09:50 Urine Specimen Description Non-specified Urine Color Yellow Urine Clarity Slightly cloudy Urine pH 6.0 Urine Specific [place] 1.015 Urine Protein Negative Urine Glucose (UA) Negative Urine Ketones Negative Urine Occult Blood Negative Urine Nitrite Negative Urine Bilirubin Negative Urine Urobilinogen 0.2 Urine Leukocyte Esterase Large H Urine RBC None seen Urine WBC 30-50 H Urine Squamous Epithelial Cells Many Urine Bacteria Few Urine Mucus Few Urine Culture Indicated Rejected for culture Volume Urine Centrifuged 10 ml Urine Comment EKG/XRAY/CT/US/VASC/MRI CT : Interpreted By: radiologist CT: L-spine Impression EXAM: CT CT LUMBAR SPINE DATE OF SERVICE: 06/03/2025 12:32 PM HISTORY: persistent lower back pain COMPARISON: None TECHNIQUE: Multiple axial CT images of the lumbosacral spine were obtained. Radiation Dose Information: CT Dose: CTDI volume is 35 mGy. Dose-length product is 1004 mGy*cm FINDINGS: Vertebral body height is maintained. Vertebral alignment is anatomic. Mild degenerative changes of the lumbar spine. No high-grade spinal canal or foraminal stenosis any level. No mass is identified within the lumbar spinal canal or paravertebral soft tissues. IMPRESSION: No acute fracture or traumatic subluxation. Electronically Signed by:DAXA SMITH MD Date & Time: 06/03/25 1257 Medical Decision Making Additional information obtaine: family Findings Patient is seen recently with negative lumbar x-ray, also had CT abdomen and pelvis to rule out kidney stone, was also negative Differential Diagnosis Patient is a 54-year-old female presenting to the ED for evaluation of persistent lower back pain for the past two months. Repeat Evaluation: Repeat evaluation was done at 1030. Patient is still experiencing pain, and rates it a 4/10. Additional REPEAT EVALUATION: An additional repeat evaluation was done at 1217. Results and plan of care discussed with patient, patient understands and is agreeable to plan and disposition MEDICAL DECISION MAKIN-year-old female presents with the acute on chronic lower back pain, previously has had negative lumbar spine x-ray as well as negative CT abdomen and pelvis for any ureterolithiasis, she is awaiting evaluation from her primary care physician for referral for lumbar MRI she has no emergent neurological deficits, no evidence of cauda equina syndrome, no incontinence, no saddle anesthesia, patient is has received a CT lumbar spine that is negative for pain has been controlled she also has a significant no UTI which we will be treated with p.o. Keflex okay to follow up with PMD strict return precautions Patient counseled on prescriptions given Portions of this chart may have been created with [employer] voice recognition software. Occasional wrong-word or sound-alike substitutions may have occurred due to the inherent limitations of voice recognition software. Please read the chart carefully and recognize, using context, where these substitutions have occurred. Departure Time of Disposition: 14:06 Disposition: 01 HOME / SELF CARE / HOMELESS Impression: Primary Impression: Acute on chronic back pain Additional Impression: Acute urinary tract infection Condition: Stable Discharge Instructions: Chronic Back Pain, Urinary Tract Infection, Adult, [id number] Additional Instructions: Take medications as prescribed. Follow up with your primary care provider regarding today's visit. Return to the ED for any new or worsening symptoms. We wish you a rapid recovery. Referrals: NO PRIMARY CARE PROVIDER (PCP) Prescriptions Cephalexin*Monohydrate* (Keflex*) 500 Mg Capsule 1 CAP PO Q8H for 10 Days, #30 CAP Prov: SESAR ALMARAZ MD 06/03/25 Education Educated: Patient Educated regarding: diagnosis, treatment Signature Scribe Signature: Scribed for Sesar Almaraz MD by Nishant Narvaez . 06/03/25 09:38 Attestation: The note accurately reflects work and decisions made by me.Sesar Almaraz MD 06/03/25 SESAR ALMARAZ MD Jun 03, 2025 09:27 NISHANT GAMBINO Jun 03, 2025 09:45
[2025-06-03] MEDS ORDERED: morphine 4 MG/ML inj SYRINge IM ONE (09:55)
[2025-06-03] MEDS ORDERED: ketorolac trometh 15mg/ml vial 15 MG/ML ML IM ONE (09:55)
[2025-06-03] MEDS: ondansetron 4mg rapidly disintigrating tab PO ONE (10:17)
[2025-06-03] MEDS: morphine 4 MG/ML inj SYRINge IV ONE (10:24)
[2025-06-03] MEDS: ketorolac trometh 15mg/ml vial 15 MG/ML ML IV ONE (10:25)
[2025-06-03 10:29] LABS: LEUKOCYTE ESTERASE ,URINE LARGE (Neg); NITRITES, URINE NEGATIVE (Neg); OCCULT BLOOD,URINE NEGATIVE (Neg)
[2025-06-03 10:37] LABS: UA COLLECTION TYPE NON-SPECIFIED
[2025-06-03 10:40] LABS: MUCUS STRANDS FEW /LPF (Neg); SQUAMOUS EPITHELIAL CELL,UR MANY /LPF (FEW)
--- NOTE | 2025-06-03 12:59 | RADIOLOGY REPORT ---
EXAM: CT CT LUMBAR SPINE DATE OF SERVICE: 06/03/2025 12:32 PM HISTORY: persistent lower back pain COMPARISON: None TECHNIQUE: Multiple axial CT images of the lumbosacral spine were obtained. Radiation Dose Information: CT Dose: CTDI volume is 35 mGy. Dose-length product is 1004 mGy*cm FINDINGS: Vertebral body height is maintained. Vertebral alignment is anatomic. Mild degenerative changes of the lumbar spine. No high-grade spinal canal or foraminal stenosis any level. No mass is identified within the lumbar spinal canal or paravertebral soft tissues. IMPRESSION: No acute fracture or traumatic subluxation.
[2025-06-03] MEDS ORDERED: CEPH-585 PO (14:21)
[2025-06-03 14:30] VITALS: BP 146/82; PULSE 82; RESP 16; O2SAT 95
== END 2025-06-03 14:33 | disposition home or self-care (01) ==
LOC: ER 09:08
DX: N39.0 Urinary tract infection, site not specified (principal); G89.29 Other chronic pain; Z79.899 Other long term (current) drug therapy
CPT/HCPCS: 72131; 81001; 96374; 96375; 99285; J1885; J2270